=== PATIENT | female | born 1965 | race Caucasian/White ===

== ENCOUNTER 2018-09-12 01:22 | Emergency (ER) | payer OTHER ==
[2018-09-12 02:18] VITALS: BP 179/89; PULSE 79; TEMP 98.3; BMI 37.5
--- NOTE | 2018-09-12 02:35 | PDOC ---
History of Present Illness - General Chief Complaint: Lightheaded Stated Complaint: DIZZINESS/HIGH BLOOD PRESSURE Time Seen by Provider: 09/12/18 02:15 History Source: Patient Exam Limitations: No Limitations - History of Present Illness Initial Comments: 09/12/18 06:37 Patient is a 52-year-old female with past medical history of dizziness for one year who presents to the ER for dizziness. Patient states that she is more dizzy tonight she has been previously. She states that the room is spinning around her. She states that these episodes are brief and lasts for approximately a minute. She states is worse when she moves her head to her left. Denies fevers, chills, shortness of breath, difficulty breathing, weakness , gait changes. Pt had an out patient MRI in January of 2018 because of her dizziness; there were no focal findings at that time. Past History - Travel Traveled outside of the country in the last 30 days: No Close contact w/someone who was outside of country & ill: No - Past Medical History Allergies/Adverse Reactions: Allergies Allergy/AdvReac Type Severity Reaction Status Date / Time No Known Allergies Allergy Verified 09/12/18 02:17 Home Medications: Ambulatory Orders NK [No Known Home Medication] 01/03/16 COPD: No HTN: Yes - Immunization History Immunization Up to Date: Yes - Suicide/Smoking/Psychosocial Hx Smoking History: Never smoked Have you smoked in the past 12 months: No Information on smoking cessation initiated: No Hx Alcohol Use: No Drug/Substance Use Hx: No Substance Use Type: None Review of Systems - Review of Systems Able to Perform ROS?: Yes Comments:: 09/12/18 03:14 CONSTITUTIONAL: Absent: fever, chills, diaphoresis, generalized weakness, malaise, loss of appetite HEENT: Absent: rhinorrhea, nasal congestion, throat pain, throat swelling, difficulty swallowing, mouth swelling, ear pain, eye pain, visual Changes CARDIOVASCULAR: Absent: chest pain, loss of consciousness, palpitations, irregular heart rate, peripheral edema RESPIRATORY: Absent: cough, shortness of breath, dyspnea with exertion, orthopnea, wheezing, stridor, hemoptysis GASTROINTESTINAL: Present: nausea Absent: abdominal pain, abdominal distension, vomiting, diarrhea , constipation, melena, hematochezia GENITOURINARY: Absent: dysuria, frequency, urgency, hesitancy, hematuria, flank pain, genital pain MUSCULOSKELETAL: Absent: myalgia, arthralgia, joint swelling SKIN: Absent: rash, itching, pallor HEMATOLOGIC/IMMUNOLOGIC: Absent: easy bleeding, easy bruising, lymphadenopathy, frequent infections ENDOCRINE: Absent: unexplained weight gain, unexplained weight loss, heat intolerance, cold intolerance NEUROLOGIC: Present: dizziness, headache Absent: focal weakness or paresthesias, seizure, mental status changes, bladder or bowel incontinence PSYCHIATRIC: Absent: anxiety, depression, suicidal or homicidal ideation, hallucinations. Is the patient limited Togolese proficient: No *Physical Exam - Vital Signs Last Vital Signs Temp Pulse Resp BP Pulse Ox 98.3 F 79 17 179/89 H 100 09/12/18 01:35 09/12/18 01:35 09/12/18 01:35 09/12/18 01:35 09/12/18 01:35 - Physical Exam Comments: 09/12/18 06:24 GENERAL: Well developed, well nourished. Awake and alert. No acute distress. HEENT: Normocephalic, atraumatic. PERRLA, EOMI. No conjunctival pallor. Sclera are non- icteric. Moist mucous membranes. Oropharynx is clear. NECK: Supple. Full ROM. No JVD. Carotid pulses 2+ and symmetric, without bruits. No thyromegaly. No lymphadenopathy. CARDIOVASCULAR: Regular rate and rhythm. No murmurs, rubs, or gallops. Distal pulses are 2+ and symmetric. PULMONARY: No evidence of respiratory distress. Lungs clear to auscultation bilaterally. No wheezing, rales or rhonchi. ABDOMINAL: Soft. Non-tender. Non-distended. No rebound or guarding. No organomegaly. Normoactive bowel sounds. MUSCULOSKELETAL Normal range of motion at all joints. No bony deformities or tenderness. No CVA tenderness. EXTREMITIES: No cyanosis. No clubbing. No edema. No calf tenderness. SKIN: Warm and dry. Normal capillary refill. No rashes. No jaundice. NEUROLOGICAL: Alert, awake, appropriate. Cranial nerves 2-12 intact. No deficits to light touch and temperature in face, upper extremities and lower extremities. No motor deficits in the in face, upper extremities and lower extremities. Normoreflexic in the upper and lower extremities. Normal speech. Toes are down- going bilaterally. Gait is normal without ataxia. PSYCHIATRIC: Cooperative. Good eye contact. Appropriate mood and affect. Moderate Sedation - Procedure Monitoring Vital Signs: Procedure Monitoring Vital Signs Temperature 98.3 F 09/12/18 01:35 Pulse Rate 79 09/12/18 01:35 Respiratory Rate 17 09/12/18 01:35 Blood Pressure 179/89 H 09/12/18 01:35 O2 Sat by Pulse Oximetry (%) 100 09/12/18 01:35 ED Treatment Course - LABORATORY CBC & Chemistry Diagram: 09/12/18 03:17 09/12/18 03:48 Medical Decision Making - Medical Decision Making 09/12/18 06:38 Patient is a 52-year-old female past medical history of dizziness, who presents to the ER for worsening of similar symptoms. On exam patient is neurologically intact with no focal findings. Ears are clear bilaterally. No nystagmus noted. Patient received IV fluids, meclizine and Zofran in the ER. Head CT is negative for acute pathology. Potassium noted to be 5.3. Kayexalate given. Patient reports improvement in her symptoms. Gait is steady. Patient states she has never been to a specialist for her symptoms we'll refer her to both ENT and neurology today. We'll discharge home. I discussed the physical exam findings, ancillary test results and final diagnoses with the patient. I answered all of the patient's questions. The patient was satisfied with the care received and felt comfortable with the discharge plan and treatment plan. The Patient agrees to follow up with the primary care physician/specialist within 24-72 hours. Return precautions were given. *DC/Admit/Observation/Transfer Diagnosis at time of Disposition: Vertigo - Discharge Dispostion Disposition: HOME Condition at time of disposition: Stable Decision to Admit order: No - Referrals Referrals: Mike Muhammad MD [Primary Care Provider] - Norman Schafer MD [Staff Physician] - Nimesh Ocampo DO [Staff Physician] - - Patient Instructions Printed Discharge Instructions: DI for Benign Paroxysmal Positional Vertigo Additional Instructions: You have vertigo Your CT scan was normal today Your lab work showed elevated potassium which you were treated for. Take the Meclizine that was previously prescribed to you. Take two pills in the morning, one at lunch time, and one at dinner Drink plenty of fluids Follow up with both neurology and ENT. Referrals have been provided to you Return to the ED for headache, worsening dizziness, fever, or if you have any changes in your symptoms. - Post Discharge Activity
[2018-09-12] MEDS ORDERED: MECLIZINE HCL 25 MG TABLET (FP) PO ONE (03:02)
[2018-09-12] MEDS ORDERED: SODIUM CHLORIDE 1,000 ML IV STA (03:02)
[2018-09-12] MEDS ORDERED: ONDANSETRON 4 MG/2 ML VIAL IVPUSH ONE (03:03)
[2018-09-12] MEDS ORDERED: MECLIZINE HCL 25 MG TABLET (FP) ONE (03:05)
[2018-09-12] MEDS ORDERED: ONDANSETRON 4 MG/2 ML VIAL ONE (03:05)
[2018-09-12 03:30] LABS: BASO % 1.9 % (0-2.0); EOS % 4.6 % (0-4.5); HEMATOCRIT 42.9 % (32.4-45.2); HEMOGLOBIN 14.9 GM/dL (10.7-15.3); LYMPH % 50.2 % (8-40); MCH 29.7 pg (25.7-33.7); MCHC 34.7 g/dl (32.0-36.0); MEAN CELL VOLUME 85.5 fl (80-96); MEAN PLT VOLUME 8.8 fl (7.5-11.1); NEUT % 34.3 % (42.8-82.8); PLATELET COUNT 268 K/MM3 (134-434); RBC 5.02 M/mm3 (3.60-5.2); RDW 13.4 % (11.6-15.6); WHITE BLOOD COUNT 5.1 K/mm3 (4.0-10.0)
[2018-09-12 04:53] LABS: URINE APPEARANCE CLEAR; URINE BILIRUBIN NEGATIVE (<2.0 mg/dL); URINE COLOR STRAW; URINE GLUCOSE (UA) NEGATIVE (NEGATIVE); URINE KETONE NEGATIVE (NEGATIVE); URINE LEUK ESTERASE NEGATIVE (NEGATIVE); URINE NITRITE NEGATIVE (NEGATIVE); URINE PROTEIN NEGATIVE (NEGATIVE); URINE UROBILINOGEN NEGATIVE mg/dL (0.2-1.0)
[2018-09-12 04:55] LABS: EPI CELLS RARE /HPF (FEW)
[2018-09-12 05:45] LABS: ALBUMIN 4.2 g/dl (3.4-5.0); ALK PHOS 110 U/L (45-117); ANION GAP 8 MMOL/L (8-16); BILIRUBIN,TOTAL 0.4 mg/dL (0.2-1); BLOOD UREA NITROGEN 19 mg/dL (7-18); CALCIUM 9.3 mg/dL (8.5-10.1); CHLORIDE 102 mmol/L (98-107); CO2 26 mmol/L (21-32); CREATININE 0.7 mg/dL (0.55-1.3); GLUCOSE,RANDOM 111 mg/dL (74-106); POTASSIUM 5.3 mmol/L (3.5-5.1); SGOT/AST 73 U/L (15-37); SGPT/ALT 41 U/L (13-61); SODIUM 136 mmol/L (136-145); TOT PROT 8.1 g/dl (6.4-8.2)
[2018-09-12] MEDS ORDERED: SODIUM POLYSTYRENE SULFONATE 15 GM/60 ML BOTTLE PO ONE (06:11)
== END 2018-09-12 06:46 | disposition home or self-care (01) ==
LOC: JER 01:22
DX: R42 Dizziness and giddiness (principal); E87.5 Hyperkalemia; I10 Essential (primary) hypertension
CPT/HCPCS: 36415; 70450-TC; 80053; 81003; 81015; 84702; 85025; 99282-25; J7030